=== PATIENT | female | born 1995 | race Caucasian/White ===

== ENCOUNTER 2018-01-28 15:47 | Observation (INO) | payer MEDICARE, OTHER ==
[2018-01-28 16:42] VITALS: RESP 16; TEMP 97.5
[2018-01-28] MEDS ORDERED: BETAMET ACET-BETAMETH SOD PHOS 6 MG/ML VIAL IM SCH (16:45)
[2018-01-28] MEDS ORDERED: LACTATED RINGERS 1,000 ML IV ONE (17:08)
[2018-01-28] MEDS ORDERED: LACTATED RINGERS 1,000 ML IV SCH (17:45)
[2018-01-28] MEDS: NIFEdipine 10 MG CAP PO PRN ×3 (17:54→18:36)
[2018-01-28 18:16] VITALS: BP 112/67; PULSE 94; BMI 29.3
[2018-01-28] MEDS ORDERED: MAGNESIUM SULFATE MG 6,000 MG in SODIUM CHLORIDE 0.9% 50 ML IVPB ONE (19:52)
--- NOTE | 2018-01-28 19:59 | P.HPOB ---
History of Present Illness H&P Date: 01/28/18 Chief Complaint: Uterine contractions and pelvic pressure, twins at 26-3/7 weeks. This is a 22-year-old white female 3 para 1011 EDC 05/03/2018 at 26-3/7 weeks' gestation. Patient presented to the hospital with uterine contractions, irregular and mild, and increasing pelvic pressure. She has a known twin gestation, both fetus is active. She denies fluid leakage or vaginal bleeding. She denies fevers shakes or chills, diarrhea nausea vomiting, or any other problems or complaints. Cervix on admission was closed, long, posterior and thick. Uterine contractions were noted every 3 minutes, fibronectin testing negative. Hydration was given, and cervix was rechecked and 1 hour at which time it was noted to be 1 cm dilated at the internal os, membranes palpated, floating presentation, posterior, 3-4cm long. Patient was given Procardia 10 mg orally at 1755 hrs., 1816 hrs., and again at 1836 hrs. Repeat cervical exam reveals 1 cm internal os, 1-1/2 cm in length, posterior, floating presentation. Uterine contractions are continuing every 2-3 minutes apart, heart rate reactive and reassuring on both twins. Obstetric history significant for blood type O positive, antibody screen negative. Pap smear, gonorrhea and chlamydia cultures all negative. Hepatitis B surface antigen and HIV testing negative. Original urine culture positive for E. coli, treated with Bactrim, repeat culture negative. Urine drug screen on 09/30/2017 and onto 2718 both positive for kidney adenoids. This is a known diamniotic dichorionic twin gestation. Twin A is noted to be a girl, vertex, with decreased amniotic fluid, estimated weight otherwise 56 percentile. Twin B is a boy, breech, with elevated fluid, 60 percentile. Cervical length was noted to be 4.36 cm sonographically on 01/21/2018. Maternal- medicine consultation has been sought, it is scheduled for next week for assessment of fluid discrepancy and recommendations. Past medical history is negative. Past surgical history is significant for appendectomy, voluntary termination of in the past. Current medications vitamins. ALLERGIES none known. Social history patient is , she is a nonsmoker of tobacco, but smokes marijuana. Family history is noncontributory. On exam this is a pleasant white female, 5 foot 4 inches, 174 pounds, blood pressure 116/68, pulse 87, respirations 16, temperature 97.5, O2 saturation 97th percentile. The general physical exam is within normal limits, fundal height is 34 cm. The chest is clear in all guevara. Cardiac exam reveals regular rate and rhythm with no murmur click or rub. Extremities reveal no edema. The cervix is 1 cm dilated in the internal cervical os, floating presentation, intact membranes, posterior, 1-1/2-2 cm in length. heart rate is reactive on both twins. Impression: 26-3/7 weeks intrauterine dichorionic diamniotic twin , labor not responding to Procardia, with cervical change noted. Betamethasone given. Plan: I will reach out to maternal- medicine at [facility], patient's hospital of choice, for maternal transfer. 6 g of magnesium sulfate has been ordered. Betamethasone 12.5 mg IM has been given. Antibiotics have been considered, we'll discuss further with MFM. Plan ambulance transfer of care as soon as can be arranged. Patient and her are aware of the risks, benefits and alternatives of this plan and agree. All questions answered. Past Medical History Past Medical History: No Reported History History of Any Multi-Drug Resistant Organisms: None Reported Past Surgical History: Appendectomy Past Anesthesia/Blood Transfusion Reactions: No Reported Reaction Past Psychological History: No Psychological Hx Reported Smoking Status: Current every day smoker Past Alcohol Use History: None Reported Past Drug Use History: None Reported - Past Family History Mother Family Medical History: Hypertension Medications and Allergies Home Medications Medication Instructions Recorded Confirmed Type Aspirin [Adult Low Dose Aspirin EC] 81 mg PO DAILY 01/28/18 01/28/18 History Ferrous Sulfate [Iron] 325 mg PO DAILY 01/28/18 01/28/18 History Pnv,Calcium 72/Iron/Folic Acid 1 tab PO DAILY 01/28/18 01/28/18 History [ Plus Tablet] Allergies Allergy/AdvReac Type Severity Reaction Status Date / Time No Known Allergies Allergy Verified 01/28/18 15:51 Exam - Vital Signs Vital signs: Vital Signs Temp Pulse Resp BP Pulse Ox 01/28/18 18:10 94 16 112/67 01/28/18 15:54 97.5 F L 101 H 16 125/75 97 Intake and Output 01/28/18 01/28/1818 06:59 14:59 22:59 Other: Weight 77.564 kg
[2018-01-28] MEDS ORDERED: MAGNESIUM SULFATE-WATER PMX 20 GM in WATER FOR INJECTION 1 500ML.BAG IV SCH (20:00)
--- NOTE | 2018-01-28 21:22 | P.DS ---
Providers Date of admission: 01/28/18 18:00 Expected date of discharge: 01/28/18 Attending physician: Herlinda Simms Primary care physician: Stated None Hospital Course: This is a 22-year-old white female 3 para 1011 EDC 05/03/2018 who presented with known twin gestation, vertex breech presentation. Patient presented with pelvic pressure and uterine contractions. Over the course of observation she changed her cervix from long closed and posterior, to 1 cm dilated, 50% effaced, floating presentation. fibronectin was performed and was negative. Procardia was given orally 3, 10 mg doses 20 minutes apart. Cervical change continued, and therefore decision was made for maternal transfer. Betamethasone was given. Transfer was accepted by [facility]. Please see fully dictated history and physical for details. Twins have a known fluid disparity, oligohydramnios and polyhydramnios as previously noted sonographically in the office. Cervical length in the office was noted to be 4.3 cm, dichorionic diamniotic status. was otherwise unremarkable with the exception of positive urine drug screen 2 for cannabinoids. Magnesium sulfate 6 g loading dose was given with a 2 g per hour maintenance dose. Maternal transfer was accepted and facilitated via ambulance to [facility]. Patient Condition at Discharge: Fair Plan - Discharge Summary New Discharge Prescriptions: No Action Pnv,Calcium 72/Iron/Folic Acid [ Plus Tablet] 1 tab PO DAILY Ferrous Sulfate [Iron] 325 mg PO DAILY Aspirin [Adult Low Dose Aspirin EC] 81 mg PO DAILY Discharge Medication List Aspirin [Adult Low Dose Aspirin EC] 81 mg PO DAILY 01/28/18 [History] Ferrous Sulfate [Iron] 325 mg PO DAILY 01/28/18 [History] Pnv,Calcium 72/Iron/Folic Acid [ Plus Tablet] 1 tab PO DAILY 01/28/18 [ History] Discharge Disposition: DC/TRNS INTERMEDIATE CARE FAC
--- NOTE | 2018-02-02 09:33 | P.MSEPDOC ---
Presenting Problems - Arrival Data Date of Arrival on Unit: 01/28/18 Time of Arrival on Unit: 15:38 Mode of Transport: Ambulatory - Complaint OB-Reason for Admission/Chief Complaint: Rule Out PROM Comment: pt states leaking since last night Medical History - Information : 3 Para: 1 Term: 1 : 0 Abortions: Spontaneous or Elective: 1 Number of Living Children: 1 - Gestational Age Gestational Age by JOSE MANUEL (wks/days): 26 Weeks and 3 Days - History Complications: Multiple , Smoker Review of Systems - Review of Systems Constitutional: No problems Breast: No problems ENT: No problems Cardiovascular: No problems Respiratory: No problems Gastrointestinal: No problems Genitourinary: No problems Musculoskeletal: No problems Neurological: No problems Skin: No problems Vital Signs - Temperature Temperature: 97.5 F Temperature Source: Temporal Artery Scan - Pulse Right Pulse Rate: 94 Pulse Assessment Method: Automatic Cuff - Respirations Respiratory Rate: 16 Oxygen Delivery Method: Room Air - Blood Pressure Right Arm Blood Pressure: 112/67 Blood Pressure Mean: 82 Blood Pressure Source: Automatic Cuff Medical Screen Scoring (Pre) - Cervical Exam Dilation: 0 cm = 0 Membranes: Intact - Uterine Contractions Frequency: < 36 weeks = 6 Duration: N/A Intensity: N/A - Pain Assessment Pain Location and Character: Abdomen Pain Scale Used: Numeric (1 - 10) Pain Intensity: 2 Pain Description: *Acute, Cramping Pain Frequency: Intermittent Pain Duration: 2 Pain Duration Units: Days Pain Behavior: None Exhibited Pain Aggravating Factors: Contractions - Assessment Baseline FHR: 135/130 Heart Rate - NICHD Category: Category I (Normal) = 0 - Total Score Total Score (Pre): 6 - Level of Risk Level of Risk: Medium (6-9) Physician Notification (Pre) - Physician Notified Physician Notified Date: 01/28/18 Physician Notified Time: 16:23 Physician/Practitioner Notifed:: Momo Spoke With: Momo New Order Received: Yes (see obix) - Notification Comment Comment: ffn, oral hydration, betamethasone, recheck cervix in one hour, schedule appt in am with [facility] Medical Screen Scoring (Post) - Cervical Exam Dilation: 1-3 cm = 1 Membranes: Intact - Uterine Contractions Frequency: < 36 weeks = 6 Duration: > 40 seconds = 2 - Pain Assessment Pain Location and Character: Left Pain Scale Used: Numeric (1 - 10) Pain Intensity: 4 Pain Description: *Acute, Cramping Pain Duration: 1 Pain Duration Units: Hours Pain Behavior: None Exhibited Pain Aggravating Factors: Contractions - Assessment Heart Rate - NICHD Category: Category I (Normal) = 0 - Total Score Total Score (Post): 9 - Post Treatment Level of Risk Post Treatment Level of Risk: Medium (6-9) Physician Notification (Post) - Physician Notified Physician Notified Date: 01/28/18 Physician Notified Time: 17:38 Physician/Practitioner Notified:: Momo Spoke With: Momo New Order Received: Yes (admit obv start Procardia protocol) Disposition - Disposition OB Disposition: Admit I agree with the RN Medical Screening Exam: Yes Risk & Benefit of care provided described in d/c instruction: Yes Diagnosis: RELATED CONDITIONS, UNSPECIFIED, SECOND TRIMESTER
== END 2018-01-28 21:10 ==
LOC: FBPOP 15:47 → 4FBP 18:00
PROVIDERS: ADMIT Obstetrics & Gynecology; ATTEND Obstetrics & Gynecology Obstetrics
DX: O60.02 Preterm labor without delivery, second trimester (principal); Z3A.26 26 weeks gestation of pregnancy; O30.042 Twin pregnancy, dichorionic/diamniotic, second trimester; O41.02X1 Oligohydramnios, second trimester, fetus 1; O40.9 Polyhydramnios, unspecified trimester; O30.049 Twin pregnancy, dichorionic/diamniotic, unspecified trimester; F17.200 Nicotine dependence, unspecified, uncomplicated; O99.332 Smoking (tobacco) complicating pregnancy, second trimester; Z82.49 Family history of ischemic heart disease and other diseases of the circulatory system; Z79.82 Long term (current) use of aspirin; O32.1XX2 Maternal care for breech presentation, fetus 2
CPT/HCPCS: 96360; 96361; 96367; 96372; 84112; 82731; G0463; G0378; J0702; J3475 ×2; 99214

== ENCOUNTER 2018-03-29 14:01 | Outpatient (CLI) | payer OTHER ==
[2018-03-29 15:09] VITALS: BP 123/71; PULSE 107; RESP 17; TEMP 97.9
[2018-03-29] MEDS ORDERED: LACTATED RINGERS 1,000 ML IV ONE (15:45)
--- NOTE | 2018-05-17 08:25 | P.MSEPDOC ---
Presenting Problems - Arrival Data Date of Arrival on Unit: 03/29/18 Time of Arrival on Unit: 14:01 Mode of Transport: Ambulatory - Complaint OB-Reason for Admission/Chief Complaint: Possible Onset of Labor Comment: pt reports contractions every 15-20 minutes since 929, denies lof/vb, reports hx of labor at 26 weeks and is currently on bedrest Medical History - Information : 3 Para: 1 Term: 1 : 0 Abortions: Spontaneous or Elective: 1 Number of Living Children: 1 - Gestational Age Gestational Age by JOSE MANUEL (wks/days): 35 Weeks and 0 Days - History Complications: Multiple Review of Systems - Review of Systems Constitutional: No problems Breast: No problems ENT: No problems Cardiovascular: No problems Respiratory: No problems Gastrointestinal: No problems Genitourinary: No problems Musculoskeletal: No problems Neurological: No problems Skin: No problems Vital Signs - Temperature Temperature: 97.9 F Temperature Source: Oral - Pulse Right Brachial Pulse Rate: 107 Pulse Assessment Method: Automatic Cuff - Respirations Respiratory Rate: 17 Oxygen Delivery Method: Room Air O2 Sat by Pulse Oximetry: 100 - Blood Pressure Right Arm Blood Pressure: 123/71 Blood Pressure Mean: 88 Blood Pressure Source: Automatic Cuff Medical Screen Scoring (Pre) - Cervical Exam Dilation: 1-3 cm = 1 Effacement: More than 50% = 2 Membranes: Intact - Uterine Contractions Frequency: > 5 minutes apart = 1 Duration: > 40 seconds = 2 Intensity: N/A - Maternal Vital Signs Maternal Temperature: N/A Maternal Blood Pressure: N/A Signs of Preeclampsia: N/A Maternal Respirations: N/A - Pain Assessment Pain Location and Character: Abdomen Pain Scale Used: Numeric (1 - 10) Pain Intensity: 3 Pain Management Goal: 3 Pain Description: *Acute, Cramping Pain Radiation Location: none Pain Frequency: Intermittent Pain Duration: 5 Pain Duration Units: Hours Pain Behavior: None Exhibited Pain Aggravating Factors: Contractions - Maternal Trauma Maternal Trauma: N/A - Assessment Baseline FHR: a 135 b 130 Heart Rate - NICHD Category: Category I (Normal) = 0 NST: Reactive Position: N/A Station: N/A - Total Score Total Score (Pre): 6 Physician Notification (Pre) - Physician Notified Physician Notified Date: 03/29/18 Physician Notified Time: 14:24 Physician/Practitioner Notifed:: Dr Simms Spoke With: Dr Simms Medical Screen Scoring (Post) - Cervical Exam Dilation: 1-3 cm = 1 Effacement: More than 50% = 2 Membranes: Intact - Uterine Contractions Frequency: > 5 minutes apart = 1 Duration: > 40 seconds = 2 Intensity: N/A - Maternal Vital Signs Maternal Temperature: N/A Maternal Blood Pressure: N/A Signs of Preeclampsia: N/A Maternal Respirations: N/A - Pain Assessment Pain Location and Character: Abdomen Pain Scale Used: Numeric (1 - 10) Pain Intensity: 2 Pain Management Goal: 3 Pain Description: *Acute, Cramping Pain Frequency: Intermittent Pain Aggravating Factors: Contractions - Total Score Total Score (Post): 6 - Post Treatment Level of Risk Post Treatment Level of Risk: Medium (6-9) Physician Notification (Post) - Physician Notified Physician Notified Date: 03/29/18 Physician Notified Time: 16:24 Physician/Practitioner Notified:: Dr Simms Spoke With: Dr Simms New Order Received: Yes (dc home) - Notification Comment Comment: pt has an appt set up for saturday 03/31, pt verbalizes understanding of s/s of when to return to triage, pt reports decrease in discomfort with contractions and is requesting to be dcd home Disposition - Disposition OB Disposition: Discharge to home, Written follow up instructions reviewed Discharge Date: 03/29/18 Discharge Time: 16:35 I agree with the RN Medical Screening Exam: Yes Risk & Benefit of care provided described in d/c instruction: Yes Diagnosis: FALSE LABOR AT OR AFTER 37 COMPLETED WEEKS OF GESTATION
== END 2018-03-29 16:35 | disposition home or self-care (01) ==
LOC: FBPOP 14:01
PROVIDERS: ATTEND Obstetrics & Gynecology Obstetrics
DX: O47.02 False labor before 37 completed weeks of gestation, second trimester (principal); Z3A.35 35 weeks gestation of pregnancy
CPT/HCPCS: 59025; 96360; G0463; 99214

== ENCOUNTER 2018-03-30 00:41 | Inpatient (IN) | payer OTHER ==
[2018-03-30] MEDS ORDERED: OXYTOCIN 10 UNIT/ML 1 ML VIAL IM PRN (01:21)
[2018-03-30] MEDS ORDERED: AMPICILLIN 2,000 MG in SODIUM CHLORIDE 0.9% 100 ML IVPB STA (01:21)
[2018-03-30] MEDS ORDERED: LIDOCAINE 1% (PF) 10 MG/ML (30 ML SDV) SQ PRN (01:21)
[2018-03-30] MEDS ORDERED: TERBUTALINE 1 MG/ML VIAL SQ PRN (01:21)
[2018-03-30] MEDS ORDERED: METHYLERGONOVINE 0.2 MG/ML 1 ML AMP IM PRN (01:21)
[2018-03-30] MEDS ORDERED: CARBOPROST TROMETHAMINE 250 MCG/ML 1 ML AMP IM PRN (01:21)
[2018-03-30] MEDS ORDERED: LACTATED RINGERS 1,000 ML IV SCH (01:30)
[2018-03-30 01:44] VITALS: BMI 31.2
[2018-03-30 01:48] LABS: Basophils % (A) 0 %; Eosinophils # (A) 0.1 k/uL (0-0.7); Eosinophils % (A) 1 %; HCT 32.7 % (34.0-46.0); Lymphocytes # (A) 2.6 k/uL (1.0-4.8); Lymphocytes % (A) 16 %; MCH 30.3 pg (25.0-35.0); MCHC 33.6 g/dL (31.0-37.0); MCV 90.1 fL (80.0-100.0); Mean Platelet Volume 7.7; Monocytes % (A) 6 %; Neutrophils # (A) 12.2 k/uL (1.3-7.7); Neutrophils % (A) 75 %; Platelet Count 292 k/uL (150-450); Poikilocytosis Slight; RBC 3.63 m/uL (3.80-5.40); RDW 14.5 % (11.5-15.5); WBC 16.1 k/uL (3.8-10.6)
[2018-03-30] MEDS ORDERED: BUTORPHANOL 1 MG/ML 1 ML VIAL IV PRN (03:01)
[2018-03-30] MEDS ORDERED: AMPICILLIN 1,000 MG in SODIUM CHLORIDE 0.9% 50 ML IVPB SCH (05:30)
[2018-03-30] MEDS ORDERED: SIMETHICONE 80 MG CHEWABLE PO PRN (06:39)
[2018-03-30] MEDS ORDERED: BENZOCAINE/MENTHOL SPRAY 1 GM/SPRAY AEROSOL TOPICAL PRN (06:39)
[2018-03-30] MEDS ORDERED: WITCH HAZEL 1 EACH MED..PAD TOPICAL PRN (06:39)
[2018-03-30] MEDS ORDERED: ACETAMINOPHEN TAB 325 MG TAB PO PRN (06:39)
[2018-03-30] MEDS ORDERED: diphenhydrAMINE 50 MG/ML 1 ML VIAL IVP PRN ×2 (06:39)
[2018-03-30] MEDS ORDERED: diphenhydrAMINE 50 MG CAP PO PRN (06:39)
[2018-03-30] MEDS ORDERED: HYDROCORTISONE 2.5% RECTAL CREAM 30 GM TUBE RECTAL PRN (06:39)
[2018-03-30] MEDS ORDERED: ZOLPIDEM 5 MG TAB PO PRN (06:39)
[2018-03-30] MEDS ORDERED: LANOLIN CREAM 5 GM TUBE TOPICAL PRN (06:39)
[2018-03-30] MEDS ORDERED: diphenhydrAMINE 25 MG CAP PO PRN (06:39)
[2018-03-30] MEDS ORDERED: OXYTOCIN 20 UNITS/1000 ML NS 1,000 ML IV SCH (06:45)
[2018-03-30] MEDS: IBUPROFEN 600 MG TAB PO PRN (06:57)
[2018-03-30] MEDS: SENNOSIDES-DOCUSATE SODIUM 1 EACH TAB PO SCH (07:50)
[2018-03-30] MEDS: NON-FORMULARY DRUG (Pnv,Calcium 72/Iron/Folic Acid [Prenatal Plus Tablet] 1 TAB) PO SCH (13:37)
[2018-03-31] MEDS: SENNOSIDES-DOCUSATE SODIUM 1 EACH TAB PO SCH ×3 (01:36→19:55)
--- NOTE | 2018-03-31 07:57 | P.PNOBGVD ---
Subjective - Subjective Principal diagnosis: PPD 1 s/p Interval history: Patient has done well . She is ambulating and voiding without difficulty. She is tolerating a regular diet without nausea or vomiting. She states her pain is well-controlled. Babies remain in the nursery secondary to gestational age Patient reports: Reports appetite normal, Reports voiding normally, Reports pain well controlled, Reports ambulating normally : doing well Objective - Latest Vital Signs Latest vital signs: Vital Signs Temp Pulse Resp BP Pulse Ox 03/31/18 00:00 97.4 F L 87 16 109/63 03/30/18 16:00 98.9 F 83 18 112/72 03/30/18 12:00 98.3 F 97 18 130/69 03/30/18 08:34 85 16 114/63 98 03/30/18 08:04 98 16 127/64 - Exam Extremities: Present: normal Abdomen: Present: normal appearance, soft Uterus: Present: firm Assessment and Plan (1) Twin gestation with second Current Visit: Yes Status: Acute Code(s): O30.009 - TWIN , UNSP NUM PLCNTA & AMNIO SACS, UNSP TRIMESTER; O09.40 - SUPERVISION OF W GRAND MULTIPARITY, UNSP TRIMESTER SNOMED Code(s): 46577177 (2) Active labor Current Visit: Yes Status: Acute Code(s): BYS5868 - SNOMED Code(s): 64196784 (3) labor in third trimester Current Visit: Yes Status: Acute Code(s): O60.03 - LABOR WITHOUT DELIVERY, THIRD TRIMESTER SNOMED Code(s): 2205312 (4) Status post vaginal delivery Current Visit: Yes Status: Acute Code(s): WBG7208 - SNOMED Code(s): 178157142 Plan: We'll continue routine care.
[2018-03-31] MEDS: NON-FORMULARY DRUG (Pnv,Calcium 72/Iron/Folic Acid [Prenatal Plus Tablet] 1 TAB) PO SCH (10:33)
[2018-03-31] MEDS: IBUPROFEN 600 MG TAB PO PRN (19:55)
--- NOTE | 2018-04-01 08:04 | P.HPOB ---
History of Present Illness H&P Date: 03/30/18 Chief Complaint: Active labor, twin gestation This is a very pleasant 22-year-old 2 para 1 at 35-1/7 weeks with an estimated due date of . Patient presents in active labor. She was seen prior and the day noted to be kendrick irregularly in 2-3 cm at that time. On presentation this evening she was noted to be 4-5 cm with a bulging bag of water. Patient is known twin dye dye gestation with vertex vertex presentation. Baby B was known to be poly-and has been followed closely throughout this . Patient did have an episode of labor 26 weeks for which she was transferred down to [facility] and received betamethasone 2. She was eventually discharged and we have been following her closely. On blood work she had a blood type of O+ rubella immune, RPR nonreactive, hepatitis B surface antigen negative, HIV negative, last UDS was done secondary to marijuana abuse and was positive on 02/11/2018. Review of Systems Constitutional: Reports fatigue, Denies chills, Denies fever Cardiovascular: Reports edema Respiratory: Denies cough, Denies dyspnea Gastrointestinal: Denies constipation, Denies diarrhea Genitourinary: Reports Past Medical History Past Medical History: No Reported History History of Any Multi-Drug Resistant Organisms: None Reported Past Surgical History: Appendectomy Past Anesthesia/Blood Transfusion Reactions: No Reported Reaction Past Psychological History: No Psychological Hx Reported Smoking Status: Current every day smoker Past Alcohol Use History: None Reported Past Drug Use History: None Reported - Past Family History Mother Family Medical History: Hypertension Medications and Allergies Home Medications Medication Instructions Recorded Confirmed Type Aspirin [Adult Low Dose Aspirin EC] 81 mg PO DAILY 01/28/18 03/30/18 History Pnv,Calcium 72/Iron/Folic Acid 1 tab PO DAILY 01/28/18 03/30/18 History [ Plus Tablet] Allergies Allergy/AdvReac Type Severity Reaction Status Date / Time No Known Allergies Allergy Verified 03/30/18 01:20 Exam Osteopathic Statement: *. No significant issues noted on an osteopathic structural exam other than those noted in the History and Physical/Consult. - Vital Signs Vital signs: Vital Signs Temp Pulse Resp BP 03/30/18 01:19 97.9 F 98 15 116/71 Intake and Output 03/29/18 03/29/1803/30/18 14:59 22:59 06:59 Other: Weight 82.554 kg Results Result Diagrams: 03/30/18 01:30 Abnormal Lab Results - Last 24 Hours (Table) 03/30/18 Range/Units 01:30 WBC 16.1 H (3.8-10.6) k/uL RBC 3.63 L (3.80-5.40) m/uL Hgb 11.0 L (11.4-16.0) gm/dL Hct 32.7 L (34.0-46.0) % Neutrophils # 12.2 H (1.3-7.7) k/uL Assessment and Plan (1) Twin gestation with second Current Visit: Yes Status: Acute Code(s): O30.009 - TWIN , UNSP NUM PLCNTA & AMNIO SACS, UNSP TRIMESTER; O09.40 - SUPERVISION OF W GRAND MULTIPARITY, UNSP TRIMESTER SNOMED Code(s): 85137089 (2) Active labor Current Visit: Yes Status: Acute Code(s): SPK9905 - SNOMED Code(s): 91056731 (3) labor in third trimester Current Visit: Yes Status: Acute Code(s): O60.03 - LABOR WITHOUT DELIVERY, THIRD TRIMESTER SNOMED Code(s): 2452274 Plan: Patient was admitted to labor and delivery for expectant management. Given her early gestational age IV ampicillin was started, Stadol is ordered for pain management per patient request. Anticipate spontaneous vaginal delivery. Time with Patient: Less than 30
--- NOTE | 2018-04-01 08:05 | P.PROBDLV ---
Vaginal Delivery Note - . Vaginal Delivery Note: This is a very pleasant 22-year-old 2 para 1 at 35-1/7 weeks that presented in active labor with known twin gestation. Vertex vertex presentation was documented by ultrasound. Patient labored until complete and was moved back to the operating suite. Amniotomy was performed and patient was proximally 5 cm and clear fluid was obtained from day. Patient began pushing and had a spontaneous vaginal delivery of twin a a female infant weight of 5-0 at 606 with Apgars of 7 and 9 at one and 5 minutes respectively. Weight of 5 lbs. 0 oz. Baby B was then documents to be in a vertex presentation and was allowed to labor down to 0 station and 0 station amniotomy was performed a large copious amount of clear fluid was obtained patient began pushing and had a spontaneous vaginal delivery delivery of a viable male infant weight of 5-12 at 618. Estimated blood loss proximally 300 mL, placenta was delivered spontaneously intact with a three-vessel cord 2. Afterwards the vaginal vault was inspected and no lacerations were noted bleeding was minimal at this time. patient and infants tolerated delivery well and are resting comfortably. Of note baby B was noted to be a little to get neck after delivery and was being monitored in the nursery.
--- NOTE | 2018-04-01 08:08 | P.DS ---
Providers Date of admission: 03/30/18 01:13 Expected date of discharge: 04/01/18 Attending physician: Herlinda Simms Primary care physician: Herlinda Simms - Discharge Diagnosis(es) (1) Twin gestation with second Current Visit: Yes Status: Acute (2) Active labor Current Visit: Yes Status: Acute (3) labor in third trimester Current Visit: Yes Status: Acute Hospital Course: This very pleasant 22-year-old 2 para 1001 at 35-1/7 weeks with a known twin dye dye gestation presented to labor and delivery on 521 with complaints of contractions. Patient was noted to be in active labor and was 4-5 cm dilated. Patient was admitted with expectant management. Amniotomy was eventually performed clear fluid was obtained patient progressed throughout labor eventually having a normal spontaneous vaginal delivery of a viable female infant at 606, weight of 5 lbs. 0 oz. and normal spontaneous vaginal delivery of a viable male at 618, weight of 5 lbs. 12 oz. Next Patient's post course has been uneventful. She is ambulating and voiding without difficulty. She is tolerating a regular diet without nausea or vomiting. She states her pain is controlled with oral Motrin. She denies any concerns and wishes to be discharged home. Baby A is in the room with her this morning, and B is wishing to be evaluated by the shoe salesperson. Next Follow-up/discharge plans are discussed with patient in detail she states understanding and will follow up as discussed in 2 weeks Plan - Discharge Summary New Discharge Prescriptions: No Action Pnv,Calcium 72/Iron/Folic Acid [ Plus Tablet] 1 tab PO DAILY Aspirin [Adult Low Dose Aspirin EC] 81 mg PO DAILY Discharge Medication List Aspirin [Adult Low Dose Aspirin EC] 81 mg PO DAILY 01/28/18 [History] Pnv,Calcium 72/Iron/Folic Acid [ Plus Tablet] 1 tab PO DAILY 01/28/18 [ History] Follow up Appointment(s)/Referral(s): Herlinda Simms DO [Primary Care Provider] - 2 Weeks Patient Instructions/Handouts: Vaginal Delivery (DC) Discharge Disposition: HOME SELF-CARE
[2018-04-01] MEDS: SENNOSIDES-DOCUSATE SODIUM 1 EACH TAB PO SCH ×2 (08:13→20:20)
[2018-04-01 16:06] VITALS: BP 124/71; PULSE 94; RESP 16; TEMP 98.6
[2018-04-01] MEDS: NON-FORMULARY DRUG (Pnv,Calcium 72/Iron/Folic Acid [Prenatal Plus Tablet] 1 TAB) PO SCH (20:20)
[2018-04-01] MEDS: IBUPROFEN 600 MG TAB PO PRN (20:45)
== END 2018-04-01 21:40 | disposition home or self-care (01) | DRG 775 ==
LOC: FBPOP 00:41 → 4FBP 01:13
PROVIDERS: ADMIT Obstetrics & Gynecology Obstetrics; ATTEND Obstetrics & Gynecology Obstetrics
PROC: 10E0XZZ Delivery of Products of Conception, External Approach (ICD-10-PCS; principal; 2018-03-30)
PROC: 10907ZC Drainage of Amniotic Fluid, Therapeutic from Products of Conception, Via Natural or Artificial Opening (ICD-10-PCS; principal; 2018-03-30)
DX: O60.14X0 Preterm labor third trimester with preterm delivery third trimester, not applicable or unspecified (principal); Z37.2 Twins, both liveborn; O30.043 Twin pregnancy, dichorionic/diamniotic, third trimester; O99.334 Smoking (tobacco) complicating childbirth; F17.200 Nicotine dependence, unspecified, uncomplicated; Z3A.35 35 weeks gestation of pregnancy; Z79.82 Long term (current) use of aspirin; Z82.49 Family history of ischemic heart disease and other diseases of the circulatory system
CPT/HCPCS: 59025; 85025; 86850; 86900; 86901; 88307; 99213